=== PATIENT | male | born 1945 | race Caucasian/White ===

== ENCOUNTER → 2017-04-30 | Outpatient (CLI) | payer MEDICARE, BC ==
[~2017-04-30] MED LIST: ALBU8.5H8 INH; CETI10TA24 PO; CHOL10003 PO; FLUT1DIS3 INH; GABA300C10 PO; HYDR-882 PO; KETO5DRO70 EACHEYE; METO25TA35 PO; MULT-658 PO; OMEP-110 PO; TRIA10.8 NS; ZOLP12.52 PO
[2017-04-30 11:53] LABS: HEMOGLOBIN 15.2 g/dL (13.7-18.0); WHITE BLOOD COUNT 6.2 x10^3/uL (3.4-10)
[2017-04-30 12:02] LABS: ASPARTATE AMINO TRANSFERASE 15 U/L (15-37); BLOOD UREA NITROGEN 21 mg/dL (7-18)
[2017-04-30 12:21] LABS: HIV 1&2 ANTIBODY SCREEN Nonreactive (Nonreactive); HIV-1 p24 ANTIGEN Nonreactive (Nonreactive)
== END | disposition home or self-care (01) ==
LOC: STAR 10:10
PROVIDERS: ATTEND Orthopaedic Surgery Orthopaedic Surgery of the Spine
DX: Z01.818 Encounter for other preprocedural examination (principal); M43.17 Spondylolisthesis, lumbosacral region; B16.9 Acute hepatitis B without delta-agent and without hepatic coma; R79.1 Abnormal coagulation profile
CPT/HCPCS: 36415; 71020; 80053; 80074; 81003; 85025; 85610; 85651; 85730; 86703; 87521; 87899; 93005; G0435

== ENCOUNTER 2017-05-15 05:17 | Inpatient (IN) | payer MEDICARE, BC ==
[2017-04-30 10:47] VITALS: BP 137/88
[~2017-05-15] VITALS: Ht 182.9 cm; Wt 95.5 kg
[2017-05-15] MEDS ORDERED: LIDOCAINE 1%, 2ML ONE (06:22)
[2017-05-15] MEDS ORDERED: LACTATED RINGERS 1,000 ML IV SCH (06:24)
[2017-05-15] MEDS ORDERED: MUPI15CR9 NAS (06:27)
[2017-05-15] MEDS ORDERED: LIDOCAINE 1%, 2ML SQ PRN (06:30)
[2017-05-15] MEDS ORDERED: GENTAMICIN 80 MG/2 ML ONE ×3 (06:48→08:14)
[2017-05-15] MEDS ORDERED: BUPIVACAINE/PF 0.5% ONE (06:48)
[2017-05-15] MEDS ORDERED: LIDOCAINE/PF 1%, 30ML ONE (06:48)
[2017-05-15] MEDS ORDERED: EPINEPHRINE 1 MG/ML, 1ML ONE (06:49)
[2017-05-15] MEDS ORDERED: HYDROmorphone 1 MG/ML, 1ML ONE (06:49)
[2017-05-15] MEDS ORDERED: BACITRACIN 50,000 UNIT ONE (06:49)
[2017-05-15] MEDS ORDERED: VANCOMYCIN 1,000 MG ONE (06:49)
[2017-05-15] MEDS ORDERED: FENTANYL PF 100 MCG/2ML ONE ×2 (06:49→07:50)
[2017-05-15] MEDS ORDERED: THROMBIN 5,000 UNIT VIAL TP ONE (06:50)
[2017-05-15] MEDS ORDERED: ALBUTEROL SULFATE 2.5 MG/3 ML NPPB PRN ×3 (07:30→20:30)
[2017-05-15] MEDS ORDERED: METOPROLOL 1 MG/ML, 5ML IV PRN (07:30)
[2017-05-15] MEDS ORDERED: LABETALOL 5MG/ML, 20ML IV PRN ×2 (07:30→14:30)
[2017-05-15] MEDS ORDERED: PROMETHAZINE 25 MG/ML, 1ML IV PRN (07:30)
[2017-05-15] MEDS ORDERED: MEPERIDINE/PF 25MG/0.5ML IVPush PRN (07:30)
[2017-05-15] MEDS ORDERED: ONDANSETRON 2MG/ML, 2ML IVPush PRN (07:30)
[2017-05-15] MEDS ORDERED: ACETAMINOPHEN 325 MG TABLET PO PRN (07:30)
[2017-05-15] MEDS ORDERED: HYDROmorphone 1 MG/ML, 1ML IV PRN (07:30)
[2017-05-15] MEDS ORDERED: EPHEDRINE 50 MG/ML, 1ML IVPush PRN (07:30)
[2017-05-15] MEDS ORDERED: hydrALAzine 20 MG/ML, 1ML IV PRN (07:30)
[2017-05-15] MEDS ORDERED: OXYcodone 5 MG/5 ML ORAL.SOL UDC PO PRN (07:30)
[2017-05-15] MEDS ORDERED: FENTANYL PF 100 MCG/2ML IV PRN (07:30)
[2017-05-15] MEDS ORDERED: METOCLOPRAMIDE 5 MG/ML, 2ML IV PRN (07:30)
[2017-05-15] MEDS ORDERED: MIDAZOLAM 1 MG/ML, 2ML ONE (07:50)
[2017-05-15] MEDS ORDERED: PHENYLEPHRINE 10 MG/ML ONE (07:50)
[2017-05-15] MEDS ORDERED: DEXAMETHASONE 4 MG/ML, 1ML ONE (07:50)
[2017-05-15] MEDS ORDERED: PROPOFOL 10 MG/ML, 20ML ONE (07:50)
[2017-05-15] MEDS ORDERED: ROCURONIUM 10MG/ML,5ML ONE (07:50)
[2017-05-15] MEDS ORDERED: CEFAZOLIN 1,000 MG ONE (07:50)
[2017-05-15] MEDS ORDERED: ONDANSETRON 2MG/ML, 2ML ONE (07:50)
[2017-05-15] MEDS ORDERED: SUCCINYLCHOLINE 20 MG/ML, 10ML ONE (07:50)
[2017-05-15] MEDS ORDERED: EPHEDRINE 50 MG/ML, 1ML ONE (07:50)
[2017-05-15] MEDS ORDERED: DIPHENHYDRAMINE 50 MG/ML, 1ML ONE (07:50)
[2017-05-15] MEDS ORDERED: HEPARIN 1,000 UNITS/ML, 30ML ONE (07:55)
[2017-05-15] MEDS ORDERED: OXYcodone 5 MG/5 ML ORAL.SOL UDC ONE (11:42)
[2017-05-15] MEDS ORDERED: HYDROmorphone PCA 30 MG/30 ML IV PRN (12:00)
[2017-05-15 13:45] VITALS: BP 137/82
[2017-05-15] MEDS ORDERED: DIPHENHYDRAMINE 50 MG/ML, 1ML IVPush PRN (14:30)
[2017-05-15] MEDS ORDERED: DIAZEPAM 5 MG/ML, 2ML IV PRN (14:30)
[2017-05-15] MEDS ORDERED: PROMETHAZINE 25 MG/ML, 1ML IM PRN (14:30)
[2017-05-15] MEDS ORDERED: OXYcodone IR 5MG TABLET PO PRN (14:30)
[2017-05-15] MEDS ORDERED: DIPHENHYDRAMINE 50 MG/ML, 1ML IM PRN (14:30)
[2017-05-15] MEDS ORDERED: MAGNESIUM HYDROXIDE 8%, 30ML UDC PO PRN (14:30)
[2017-05-15] MEDS ORDERED: HYDROmorphone 2 MG/ML, 1ML IM PRN (14:30)
[2017-05-15] MEDS ORDERED: DIPHENHYDRAMINE 50 MG CAPSULE PO PRN (14:30)
[2017-05-15] MEDS ORDERED: BISACODYL 10 MG SUPP PR PRN (14:30)
[2017-05-15] MEDS ORDERED: DIAZEPAM 5 MG TABLET PO PRN (14:30)
[2017-05-15] MEDS: OMEPRAZOLE 20 MG CAPSULE.DR PO SCH ×2 (16:45→19:05)
[2017-05-15] MEDS: CEFAZOLIN PMX 1GM/50ML 50 ML IVPB SCH (17:25)
[2017-05-15] MEDS: D5%-0.9% NACL+KCL 20MEQ 1,000 ML IV SCH (17:25)
[2017-05-15] MEDS: ACETAMINOPHEN 500 MG TABLET PO SCH ×2 (17:26→21:28)
[2017-05-15] MEDS: METOPROLOL TARTRATE 25 MG TABLET PO SCH (19:05)
[2017-05-15 19:38] VITALS: BP 131/81
[2017-05-15] MEDS ORDERED: FLUTICASONE/VILANTEROL 100-25MCG/INH INH SCH (21:00)
[2017-05-15] MEDS: GABAPENTIN 300 MG CAPSULE PO SCH (21:28)
[2017-05-15] MEDS: AMIODARONE 200 MG TABLET PO SCH (21:29)
[2017-05-15] MEDS: KETOROLAC OPHTH 0.5%, 5ML EACHEYE SCH (21:29)
[2017-05-15] MEDS: ZOLPIDEM 10MG TABLET PO PRN (22:37)
[2017-05-15 23:11] VITALS: BP 107/71
[2017-05-16] MEDS: CEFAZOLIN PMX 1GM/50ML 50 ML IVPB SCH ×3 (01:40→16:39)
[2017-05-16] MEDS: D5%-0.9% NACL+KCL 20MEQ 1,000 ML IV SCH ×4 (02:00→20:00)
[2017-05-16 02:59] VITALS: BP 112/72
[2017-05-16] MEDS: METOPROLOL TARTRATE 25 MG TABLET PO SCH ×2 (05:38→17:29)
[2017-05-16] MEDS: KETOROLAC OPHTH 0.5%, 5ML EACHEYE SCH ×4 (05:38→20:51)
[2017-05-16] MEDS: ACETAMINOPHEN 500 MG TABLET PO SCH ×3 (07:54→20:50)
[2017-05-16] MEDS: CETIRIZINE 10 MG TABLET PO SCH (07:54)
[2017-05-16] MEDS: SENNA/DOCUSATE TABLET PO SCH (07:54)
[2017-05-16] MEDS: OMEPRAZOLE 20 MG CAPSULE.DR PO SCH ×2 (07:54→16:39)
[2017-05-16] MEDS: GABAPENTIN 300 MG CAPSULE PO SCH ×2 (07:54→20:50)
[2017-05-16] MEDS: FLUTICASONE NASAL SPRAY 16GM NAS SCH (07:57)
[2017-05-16 08:00] VITALS: BP 128/81
[2017-05-16 13:30] VITALS: BP 101/62
[2017-05-16 17:30] VITALS: BP 122/74
[2017-05-16] MEDS: METHYLNALTREXONE 12 MG/0.6 ML SQ ONE ×2 (18:30→20:52)
[2017-05-16 18:42] VITALS: BP 107/64
[2017-05-16 20:14] LABS: HEMATOCRIT 39.9 % (39.2-51.8); HEMOGLOBIN 13.1 g/dL (13.7-18.0)
[2017-05-16] MEDS: AMIODARONE 200 MG TABLET PO SCH (20:51)
[2017-05-16] MEDS: ADVAIR 250/50 INHALER INH SCH (21:00)
[2017-05-16] MEDS: ZOLPIDEM 10MG TABLET PO PRN (22:34)
[2017-05-17 02:05] VITALS: BP 105/65
[2017-05-17] MEDS: CEFAZOLIN PMX 1GM/50ML 50 ML IVPB SCH ×2 (02:05→09:00)
[2017-05-17] MEDS: D5%-0.9% NACL+KCL 20MEQ 1,000 ML IV SCH ×2 (04:00→12:00)
[2017-05-17] MEDS: KETOROLAC OPHTH 0.5%, 5ML EACHEYE SCH ×2 (06:02→11:27)
[2017-05-17] MEDS: METOPROLOL TARTRATE 25 MG TABLET PO SCH (06:02)
[2017-05-17 07:21] VITALS: BP 107/65
[2017-05-17 07:54] VITALS: BP 125/76
[2017-05-17] MEDS: CETIRIZINE 10 MG TABLET PO SCH (07:57)
[2017-05-17] MEDS: OMEPRAZOLE 20 MG CAPSULE.DR PO SCH (07:57)
[2017-05-17] MEDS: GABAPENTIN 300 MG CAPSULE PO SCH (07:57)
[2017-05-17] MEDS: SENNA/DOCUSATE TABLET PO SCH (07:57)
[2017-05-17] MEDS: ACETAMINOPHEN 500 MG TABLET PO SCH (07:57)
[2017-05-17] MEDS: ADVAIR 250/50 INHALER INH SCH (08:01)
[2017-05-17] MEDS: OXYcodone IR 5MG TABLET PO PRN ×2 (08:08→12:02)
[2017-05-17] MEDS: FLUTICASONE NASAL SPRAY 16GM NAS SCH (08:11)
[2017-05-17] MEDS ORDERED: ALBUTEROL SULFATE 2.5 MG/3 ML NPPB PRN (14:00)
[2017-05-17] MEDS ORDERED: ZOLPIDEM 10MG TABLET PO PRN (14:00)
[2017-05-17] MEDS ORDERED: PHARMACY INSTRUCTION MC PRN (14:00)
[2017-05-17 14:30] VITALS: BP 112/68
[2017-05-17] MEDS ORDERED: AMIO100T4 PO (14:56)
[2017-05-17] MEDS ORDERED: CELE200C PO (14:57)
[2017-05-17] MEDS ORDERED: OXYC10TA6 PO (14:58)
[2017-05-17] MEDS ORDERED: KETOROLAC OPHTH 0.5%, 5ML EACHEYE SCH (16:00)
[2017-05-18] MEDS ORDERED: OMEPRAZOLE 20 MG CAPSULE.DR PO SCH (09:00)
[2017-05-18] MEDS ORDERED: MULTIVITAMIN 1 TABLET PO SCH (09:00)
[2017-05-18] MEDS ORDERED: FLUTICASONE NASAL SPRAY 16GM NAS SCH (09:00)
[2017-05-18] MEDS ORDERED: CYANOCOBALAMIN 1,000 MCG TABLET PO SCH (09:00)
== END 2017-05-17 15:27 | disposition home or self-care (01) | DRG 459 ==
LOC: UNDOADMIN 05:17 → ORIP 05:17 → 4NOR 12:49 → DCLOUNGE 05-17 14:45
PROVIDERS: ADMIT Orthopaedic Surgery Orthopaedic Surgery of the Spine; ATTEND Orthopaedic Surgery Orthopaedic Surgery of the Spine
PROC: 0SG0071 Fusion of Lumbar Vertebral Joint with Autologous Tissue Substitute, Posterior Approach, Posterior Column, Open Approach (ICD-10-PCS; 2017-05-15)
PROC: 0SG3071 Fusion of Lumbosacral Joint with Autologous Tissue Substitute, Posterior Approach, Posterior Column, Open Approach (ICD-10-PCS; 2017-05-15)
PROC: 4A11X4G Monitoring of Peripheral Nervous Electrical Activity, Intraoperative, External Approach (ICD-10-PCS; 2017-05-15)
PROC: 01NB0ZZ Release Lumbar Nerve, Open Approach (ICD-10-PCS; principal; 2017-05-15 07:30)
DX: M48.061 Spinal stenosis, lumbar region without neurogenic claudication (principal); J96.20 Acute and chronic respiratory failure, unspecified whether with hypoxia or hypercapnia; I48.2 Chronic atrial fibrillation; I25.10 Atherosclerotic heart disease of native coronary artery without angina pectoris; M43.16 Spondylolisthesis, lumbar region; J45.909 Unspecified asthma, uncomplicated; K21.9 Gastro-esophageal reflux disease without esophagitis; Z96.653 Presence of artificial knee joint, bilateral; M46.90 Unspecified inflammatory spondylopathy, site unspecified; M54.16 Radiculopathy, lumbar region; Z79.82 Long term (current) use of aspirin; Z82.49 Family history of ischemic heart disease and other diseases of the circulatory system; Z83.3 Family history of diabetes mellitus; Z85.46 Personal history of malignant neoplasm of prostate; Z85.828 Personal history of other malignant neoplasm of skin; Z87.891 Personal history of nicotine dependence; Z92.3 Personal history of irradiation
CPT/HCPCS: 36415; 72100; 85014; 85018; 86850; 86900; 86923; C1713; J0171; J0690; J1100; J1170; J1644; J2250; J2405; J2704; J3010; J3370; J3490; C1762; J0330; J1200; J1580; J2370; J3480; J7120